=== PATIENT | female | born 1975 | race Caucasian/White ===

== ENCOUNTER 2023-12-24 11:11 | Outpatient (CLI) | payer BC, SELFPAY ==
--- NOTE | ~2023-12-24 | XR_ITS ---
Clinical Indication: Cough PA and lateral views of the chest: Comparison: None Findings: The lungs are clear, without evidence of focal consolidation or pleural effusion. Cardiome diastinal silhouette is within normal limits. Bones and soft tissues are unremarkable. Impression: Normal chest. Reviewed, dictated and finalized at location . ING ROOM OPERATOR Impression: Normal chest.
== END 2023-12-24 11:12 ==
PROVIDERS: PCP Physician Assistant Medical; Visit Provider Physician Assistant Medical
DX: R05.3 Chronic cough (principal)
CPT/HCPCS: 71046

== ENCOUNTER 2024-01-05 10:54 | Outpatient (CLI) | payer BC, SELFPAY ==
[2024-01-05 11:15] LABS: Basophils Percent Auto 0.6 % (0.2-1.2); Eosinophils Absolute Auto 0.1 K/mm3 (0-0.3); Eosinophils Percent Auto 1.5 % (0-4.4); Hematocrit 29.6 % (37.0-47.0); Hemoglobin 8.7 g/dL (12.0-15.0); Immature Granulocyte Absolute 0.01 K/mm3 (0.00-0.031); Immature Granulocyte Percent A 0.2 % (0-0.5); Lymphocytes Absolute Auto 1.88 K/mm3 (0.9-3.2); Lymphocytes Percent Auto 28.7 % (18.3-44.2); Mean Corpuscular HGB Conc 29.4 g/dl (32-36); Mean Corpuscular Hemoglobin 20.8 pg (26-34); Mean Corpuscular Volume 70.8 fl (80-100); Mean Platelet Volume 9.3 fl (7.4-10.4); Monocytes Absolute Auto 0.4 K/mm3 (0.1-0.6); Monocytes Percent Auto 5.9 % (2.6-8.5); Neutrophils Absolute Auto 4.1 K/mm3 (1.3-6.7); Neutrophils Percent Auto 63.1 % (45.5-73.1); Platelet Count Result 402 k/mm3 (150-375); Red Blood Count 4.18 M/mm3 (4.2-5.4); Red Cell Distribution Width 19.5 % (11.5-14.5); White Blood Count 6.6 K/mm3 (4.5-10.0)
[2024-01-05 11:25] LABS: Platelet Estimate Increased (Adequate); Schistocytes None Seen (NORMAL)
[2024-01-05 11:26] LABS: Anisocytosis 1+ (NORMAL); Hypochromasia 1+ (NORMAL); Microcytosis 1+ (NORMAL)
[2024-01-05 11:27] LABS: Ovalocytes 1+ (NORMAL); Poikilocytosis 1+ (NORMAL)
[2024-01-05 12:46] LABS: Iron 25 ug/dL (37-170)
[2024-01-05 12:57] LABS: Alanine Aminotransferase 15 U/L (6-35); Alkaline Phosphatase 79 U/L (38-126); Anion Gap 6 mmol/L (8-16); Aspartate Amino Transferase 22 U/L (14-36); Bilirubin,Total 0.6 mg/dL (0.2-1.3); Blood Urea Nitrogen 13 mg/dL (7-17); Calcium 9.1 mg/dL (8.4-10.2); Carbon Dioxide 26 mmol/L (22-30); Chloride 106 mmol/L (98-107); Estimated Glomerular Filt Rate > 60; Glucose 87 mg/dL (65-110); Potassium 4.2 mmol/L (3.4-5.0); Sodium 138 mmol/L (137-145)
[2024-01-05 12:58] LABS: Percent Iron Saturation 5 % (20-50)
[2024-01-05 13:23] LABS: Ferritin 4.35 ng/mL (6.24-137)
[2024-01-05 13:58] LABS: Folic Acid 6.8 ng/mL (2.76->20)
[2024-01-08 15:17] LABS: Methylmalonic Acid 110 nmol/L (87-318)
[2024-01-10 17:17] LABS: Soluble Transferrin Receptor 4.54 mg/L (0.76-1.76)
== END 2024-01-05 10:55 | disposition home or self-care (01) ==
LOC: ANHLAB 10:55
PROVIDERS: Nurse Practitioner Family; PCP Family Medicine; Visit Provider Internal Medicine Hematology & Oncology
DX: D50.0 Iron deficiency anemia secondary to blood loss (chronic) (principal)
CPT/HCPCS: 36415; 80053; 82607; 82728; 82746; 83540; 83550; 83921; 84238; 85025